=== PATIENT | female | born 1955 ===

== ENCOUNTER 2019-08-12 16:40 | Outpatient (CLI) | payer OTHER | END 2019-08-12 23:59 | disposition short-term general hospital (02) | LOC: EMS 16:40 | PROVIDERS: ATTEND Surgery | DX: S01.01XA Laceration without foreign body of scalp, initial encounter (principal); M54.9 Dorsalgia, unspecified; W01.0XXA Fall on same level from slipping, tripping and stumbling without subsequent striking against object, initial encounter; Y93.A1 Activity, exercise machines primarily for cardiorespiratory conditioning; Y92.39 Other specified sports and athletic area as the place of occurrence of the external cause | CPT/HCPCS: A0425; A0429 ==

== ENCOUNTER 2023-03-25 10:17 | Outpatient (CLI) | payer MEDICARE | END 2023-03-25 10:18 | disposition short-term general hospital (02) | LOC: EMS 10:17 | DX: S09.90XA Unspecified injury of head, initial encounter (principal); W18.39XA Other fall on same level, initial encounter; Y93.E1 Activity, personal bathing and showering; Y92.002 Bathroom of unspecified non-institutional (private) residence as the place of occurrence of the external cause | CPT/HCPCS: A0425; A0429 ==

== ENCOUNTER 2023-07-11 08:00 | Outpatient (CLI) | payer MEDICARE | END 2023-07-11 23:59 | disposition home or self-care (01) | LOC: LAB.S 08:00 | PROVIDERS: ATTEND Physician Assistant Medical | DX: N39.0 Urinary tract infection, site not specified (principal) | CPT/HCPCS: 87086; 87181 ==

== ENCOUNTER 2024-04-18 08:47 | Outpatient (CLI) | payer MEDICARE | END 2024-04-18 08:48 | disposition EMS.NT | LOC: EMS 08:47 | DX: Z03.89 Encounter for observation for other suspected diseases and conditions ruled out (principal) ==